=== PATIENT | male | born 1935 | race Caucasian/White ===

== ENCOUNTER → 2019-11-08 | Outpatient (CLI) | payer MEDICARE ==
--- NOTE | 2019-11-08 14:56 | RADIOLOGY REPORT (SQ) ---
EXAM DESCRIPTION: U/S RETROPERITON LTD COMPLETED DATE/TIME: 11/08/2019 12:27 pm REASON FOR STUDY: AAA (I71.4) I71.4 ABDOMINAL AORTIC ANEURYSM, WITHOUT RUPTURE COMPARISON: None. TECHNIQUE: Static and dynamic grayscale images acquired of the aorta and stored on PACs. Selected co roland Doppler and spectral images recorded. LIMITATIONS: None. FINDINGS: AORTIC CALIBER MAXIMAL PROXIMAL: 4.7 x 5.2 cm. MID: 5.8 x 5.9 cm. DISTAL: 6 x 6 cm. ILIAC DIAMETER RIGHT: Not seen. Cm. LEFT: Not seen. Cm. OTHER: No other significant finding. IMPRESSION: Large abdominal aortic aneurysm. COMMENT: Aortic aneurysm imaging followup: ?5.5 cm Referral to vascular surgeon recommended *Based upon the Society for Vascular Surgery Guidelines: J Vasc Surg. 2009 Oct;50(4 Suppl):S2-49 *For aortas of maximum diameter of 2.6-2.9 cm meeting the criteria for AAA (?1.5 x proximal normal se gment) TECHNICAL DOCUMENTATION: JOB ID: [id number] el?- All Rights Reserved Reading location - IP/workstation name: [email or web address]
== END ==
LOC: RAD 10:55
PROVIDERS: ATTEND Family Medicine
DX: I71.4 Abdominal aortic aneurysm, without rupture (principal)
CPT/HCPCS: 76775

== ENCOUNTER → 2019-11-17 | Outpatient (CLI) | payer MEDICARE ==
--- NOTE | 2019-11-17 17:14 | RADIOLOGY REPORT (SQ) ---
EXAM DESCRIPTION: CTA ABDOMEN/PELVIS W WO COMPLETED DATE/TIME: 11/17/2019 4:36 pm REASON FOR STUDY: I71.4 ABDOMINAL AORTIC ANEURYSM, WITHOUT RUPTURE I71.4 ABDOMINAL AORTIC ANEURYSM, WITHOUT RUPTURE COMPARISON: 02/16/2015 TECHNIQUE: CT scan of the abdominal aorta extending to the iliac bifurcation performed with intraven ous contrast using helical scanning technique with dynamic intravenous contrast injection. Images rev iewed with lung, soft tissue, and bone windows. Reconstructed coronal and sagittal MPR images reviewe d. All images stored on PACS. Advanced 3D imaging as volume rendering, MIPS, SSD performed? yes All CT scanners at this facility use dose modulation, iterative reconstruction, and/or weight based d osing when appropriate to reduce radiation dose to as low as reasonably achievable (ALARA). [facility]: Dose Right [facility]: CareDose [facility]: Dose Right [facility]: Teradose 4D [facility]: Optinel Systems CONTRAST TYPE AND DOSE: contrast/concentration: Isovue 350.00 mg/ml; Total Contrast Delivered: 100.0 ml; Total Saline Delivered: 90.0 ml RENAL FUNCTION: 0.9 creatinine LIMITATIONS: None. FINDINGS: AORTA AND VESSELS: Interval increase in size of the previously described abdominal aortic aneurysm measuring 6.6 x 6.4 cm in greatest dimension. The aneurysm extends from above the level of the left renal artery to the iliac bifurcation and spans approximately 13.3 cm in sagittal span. 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 The right externa l iliac is poorly opacified. There are scattered bilateral iliac calcifications with multifocal mode rate to severe luminal stenosis. The right common femoral artery appears occluded. High-grade steno sis at the proximal left SFA. 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 The celiac SMA, right renal artery and left renal artery are opacified with mult ifocal atherosclerosis. Likely moderate to high-grade stenosis of the left renal artery. 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 LUNG BASES: Unchanged soft tissue consolidation within the left lung base most compatible with benign etiology, likely round atelectasis. Small hiatal hernia. Basilar paraseptal emphysema. Coronary a therosclerosis. Enlarged heart LIVER: Normal size. No masses or dilated ducts. SPLEEN: Normal size. No focal lesions. PANCREAS: No masses. No significant calcifications. No adjacent inflammation or peripancreatic fluid collections. Pancreatic duct not dilated. GALLBLADDER: Decompressed. No radiopaque stones. ADRENAL GLANDS: No significant masses or asymmetry. RIGHT KIDNEY AND URETER: No mass, calculi or urinary tract obstruction. Scattered renal cysts. LEFT KIDNEY AND URETER: No mass, calculi or urinary tract obstruction. Scattered vascular calcificat ions. Large cyst measuring 7.1 cm. RETROPERITONEUM: No retroperitoneal adenopathy, hemorrhage or masses. BOWEL AND PERITONEAL CAVITY: Extensive colonic diverticula. No evidence of intestinal obstruction. No focal bowel wall thickening. APPENDIX: Normal. PELVIS AND ABDOMINAL WALL: No focal bladder wall thickening. Brachy therapy seeds within the prostat e. No pelvic adenopathy or free fluid. No masses. No hernias. BONY STRUCTURES: No acute bony abnormality. Decreased mineralization. Degenerative changes at the h ips and pubic symphysis. Thoracolumbar spondylosis and facet arthropathy. 3-D IMAGING: Confirms the above findings. OTHER: No other significant finding. IMPRESSION: 1. Interval increase in size of the complex juxta renal abdominal aortic aneurysm measu ring up to 6.6 cm. Additional detailed findings of the abdominal aortic and iliac aneurysms as detai led above. Recommend vascular surgical consultation if not previously performed. 2. No other evidence of acute intra-abdominal/pelvic process. 3. Unchanged multiple additional chronic findings as above. TECHNICAL DOCUMENTATION: JOB ID: [id number] Quality ID # [id number]: Final reports with documentation of one or more dose reduction techniques (e.g., Au tomated exposure control, adjustment of the mA and/or kV according to patient size, use of iterative reconstruction technique) 2010 [employer]- All Rights Reserved Reading location - IP/workstation name: [email or web address]
== END ==
LOC: RAD 15:30
PROVIDERS: ATTEND Surgery Vascular Surgery
DX: I71.4 Abdominal aortic aneurysm, without rupture (principal)
CPT/HCPCS: 74174; 82565

== ENCOUNTER 2020-04-10 11:36 | Emergency (ER) | payer MEDICARE ==
--- NOTE | 2020-04-10 14:21 | RADIOLOGY REPORT (SQ) ---
EXAM DESCRIPTION: CHEST SINGLE VIEW IMAGES COMPLETED DATE/TIME: 04/10/2020 2:03 pm REASON FOR STUDY: Shortness of breath COMPARISON: None. EXAM PARAMETERS: NUMBER OF VIEWS: One view. TECHNIQUE: Single frontal radiographic view of the chest acquired. RADIATION DOSE: NA LIMITATIONS: None. FINDINGS: LUNGS AND PLEURA: Small left pleural effusion. Ill-defined opacification in the left base . MEDIASTINUM AND HILAR STRUCTURES: No masses. Contour normal. HEART AND VASCULAR STRUCTURES: Heart normal in size. Normal vasculature. BONES: No acute findings. HARDWARE: Sternotomy wires. OTHER: No other significant finding. IMPRESSION: Small left pleural effusion. Limited airspace disease in the left base, atelectasis barbi cecilia pneumonia. TECHNICAL DOCUMENTATION: JOB ID: [id number] 2010 [employer]- All Rights Reserved Reading location - IP/workstation name: [email or web address]
[2020-04-10 14:23] LABS: ABSOLUTE EOSINOPHILS # (AUTO) 0.3 10^3/uL (0.0-0.6); ABSOLUTE LYMPHOCYTES (AUTO) 0.6 10^3/uL (0.5-4.7); ABSOLUTE MONOCYTES (AUTO) 0.5 10^3/uL (0.1-1.4); ABSOLUTE NEUT (AUTO) 3.9 10^3/uL (1.7-8.2); BASOPHILS % (AUTO) 0.6 % (0-2); EOSINOPHILS % (AUTO) 4.8 % (0-6); HEMATOCRIT 35.4 % (37.9-51.0); HEMOGLOBIN 11.9 g/dL (13.5-17.0); LYMPHOCYTES % (AUTO) 11.3 % (13-45); MEAN CORPUSCULAR HEMOGLOBIN 31.1 pg (27.0-33.4); MEAN CORPUSCULAR HGB CONC 33.6 g/dL (32.0-36.0); MEAN CORPUSCULAR VOLUME 93 fl (80-97); MONOCYTES % (AUTO) 9.4 % (3-13); PLATELET COUNT 150 10^3/uL (150-450); RED BLOOD COUNT 3.82 10^6/uL (4.35-5.55); RED CELL DISTRIBUTION WIDTH 14.6 % (11.5-14.0); SEGMENTED NEUTROPHILS % (AUTO) 73.9 % (42-78); TOTAL CELLS COUNTED % (AUTO) 100 %; WHITE BLOOD COUNT 5.2 10^3/uL (4.0-10.5)
[2020-04-10 14:29] LABS: ALBUMIN 3.5 g/dL (3.5-5.0); ALKALINE PHOSPHATASE 59 U/L (38-126); ANION GAP 6 (5-19); ASPARTATE AMINO TRANSFERASE 18 U/L (17-59); BILIRUBIN,TOTAL 0.5 mg/dL (0.2-1.3); BLOOD UREA NITROGEN 20 mg/dL (7-20); CALCIUM 9.2 mg/dL (8.4-10.2); CARBON DIOXIDE 27 mmol/L (22-30); CHLORIDE 104 mmol/L (98-107); CREATINE KINASE 31 U/L (55-170); GLUCOSE 128 mg/dL (75-110); POTASSIUM 4.4 mmol/L (3.6-5.0); TOTAL PROTEIN 6.3 g/dL (6.3-8.2)
[2020-04-10 14:37] LABS: CREATINE KINASE MB 0.84 ng/mL (<4.55); TROPONIN I 0.031 ng/mL
--- NOTE | 2020-04-10 15:26 | ER Document Report ---
ED Dizziness/Weakness - General Chief Complaint: Dizziness Stated Complaint: DIZZY Time Seen by Provider: 04/10/20 12:30 Primary Care Provider: DOREEN DIAMOND MD [Primary Care Provider] - Follow up as needed Mode of Arrival: Ambulatory Information source: Patient Notes: 84-year-old male presents to the emergency department with complaint of tried to stand this morning and felt dizzy and weak, these are not new symptoms but they were worse than normal. Patient states that he is always dizzy and weak, apparently has not been drinking a lot of fluids and is taking blood pressure medications. There is no history of exposure to coronavirus or cough, fever. He has not taken his usual medications today. He is on spironolactone, valsartan, amlodipine, Flomax, pravastatin, and Plavix. He denies chest pain, shortness of breath, or palpitations. He denies cough, fever, dysuria or myalgias. TRAVEL OUTSIDE OF THE [place] IN LAST 30 DAYS: No - Related Data Allergies/Adverse Reactions: No Known Allergies Allergy (Unverified 04/10/20 12:04) Home Medications: tamsulosin, pravastin, asparin, valsartan, amlodipine, clopidigrel, nirtomint, spironolactone Past Medical History - Social History Smoking Status: Former Smoker Frequency of alcohol use: None Drug Abuse: None Family History: Reviewed & Not Pertinent Patient has homicidal ideation: No Review of Systems - Review of Systems Notes: Constitutional: Negative for fever. HENT: Negative for sore throat. Eyes: Negative for visual changes. Cardiovascular: Negative for chest pain. Respiratory: Negative for shortness of breath. Gastrointestinal: Negative for abdominal pain, vomiting or diarrhea. Genitourinary: Negative for dysuria. Musculoskeletal: Negative for back pain. Skin: Negative for rash. Neurological: + Dizziness, + weakness. 10 point ROS negative except as marked above and in HPI. Physical Exam - Vital signs Vitals: Temp Pulse Resp BP Pulse Ox 97.5 F 64 18 134/65 H 98 04/10/20 11:47 04/10/20 11:47 04/10/20 11:47 04/10/20 11:47 04/10/20 11:47 - Notes Notes: PHYSICAL EXAMINATION: Physical Exam: General: Chronically ill-appearing 84-year-old man in no acute distress. HEENT: NC/AT, pupils equal round and reactive to light, MM moist,nares clear, oropharynx clear, airway patent Neck: supple, no adenopathy, no masses. Good range of motion Lungs: clear, no wheezing, no rales no rhonchi CVS: Regular rate and rhythm no murmur gallop or rub Abdomen: Soft, active, nontender, no masses, no hepatosplenomegaly Ext: 1+ edema, clubbing or cyanosis. Neuro: Alert and responsive, moving all 4 extremities on command, cranial nerves intact, no focal findings Skin: Intact no open lesions, no rash PSYCH: Normal mood, normal affect. Course - Re-evaluation Re-evalutation: 04/10/20 16:50 Patient was found to have a slightly elevated troponin and elevated BNP, he however is stating that he is ready to go home and is feeling better. A.m. repeat troponin is done there is no significant change in the value. Patient is being discharged home to follow-up with his primary care doctor as needed. - Vital Signs Vital signs: Temp Pulse Resp BP Pulse Ox 97.5 F 64 22 H 120/86 H 99 04/10/20 11:47 04/10/20 11:47 04/10/20 16:49 04/10/20 16:49 04/10/20 16:49 - Laboratory Result Diagrams: 04/10/20 11:50 04/10/20 11:50 Laboratory results interpreted by me: 04/10/20 04/10/20 04/10/20 11:50 11:50 11:50 RBC 3.82 L Hgb 11.9 L Hct 35.4 L RDW 14.6 H Lymph % (Auto) 11.3 L Glucose 128 H Creatine Kinase 31 L NT-Pro-B Natriuret Pep 777 H 04/10/20 15:23 I have reviewed laboratory data and used this information for the treatment decisions regarding the patient. - EKG Interpretation by Me EKG shows normal: Sinus rhythm - Sinus rhythm rate of 77, no acute ST or T wave abnormalities, normal axis. Discharge - Discharge Clinical Impression: Dizziness, Weakness Condition: Good Disposition: HOME, SELF-CARE Instructions: Dizziness ([facility]) Additional Instructions: You were seen in the emergency department today for dizziness, your evaluation is essentially negative for acute laboratory or cardiac findings. Please follow-up with your primary care doctor if your symptoms continue or if there is other concerns. If your symptoms are worsening or if you have other concerns you may return to the emergency department for further evaluation and treatment. HOME CARE INSTRUCTIONS & INFORMATION: Thank you for choosing us for your medical needs. We hope you're satisfied with the care you received. After you leave, you must properly care for your problem and, at the same time, observe its progress. Any condition can change. Some illnesses can change rapidly over hours or days. If your condition worsens, return to the Emergency Department or see your physician promptly. ABOUT YOUR X-RAYS AND EKG'S: If you had an EKG or X-rays taken, they have been read by the Emergency Physician. The X-rays and EKG's will also be read by a Radiologist or Bottling Machine Operator within 24 hours. If discrepancies are noted, you will be notified by telephone. Please be certain the ED has a correct telephone number & address where you can be reached. Also, realize that some fractures or abnormalities do not show up on initial X-rays. If your symptoms continue, see your physician. ABOUT YOUR LABORATORY TEST: If you had laboratory tests, the results have been reviewed by the Emergency Physician. Some test results (for example cultures) may not be available for several days. You will be contacted if any test result shows you need additional treatment. Please be certain the ED has a correct telephone number and address where you can be reached. ABOUT YOUR MEDICATIONS: You will receive instructions on how to take your medicine on the prescription label you receive. Additional information may be provided by the Pharmacy. If you have questions afterwards, call the ED for clarification or further instructions. Some prescribed medications may cause drowsiness. Do not perform tasks such as driving a car or operating machinery without consulting your Pharmacist. If you feel you need a refill of pain medication, your condition will need re-evaluation. Please do not call for a refill of any medication. ABOUT YOUR SIGNATURE: Signature of this document acknowledges to followin. Understanding that you received emergency treatment and that you may be released before al medical problems are known or treated. Please be certain the ED has a correct phone number & address where you can be reached. 2. Acknowledgement that you will arrange for follow-up care as recommended. 3. Authorization for the Emergency Physician to provide information to your follow-up Physician in order to maximize your care. AT ANY TIME, IF YOUR SYMPTOMS CHANGE SIGNIFICANTLY OR WORSEN OR YOU DEVELOP NEW SYMPTOMS, RETURN TO THE EMERGENCY DEPARTMENT IMMEDIATELY FOR RE-EVALUATION. OUR GOAL IS TO PROVIDE EXCELLENT MEDICAL CARE! WE HOPE THAT WE HAVE MET YOUR EXPECTATIONS DURING YOUR EMERGENCY DEPARTMENT VISIT AND THAT YOU FEEL YOU HAVE RECEIVED EXCELLENT CARE! Referrals: DOREEN DIAMOND MD [Primary Care Provider] - Follow up as needed
[2020-04-10 17:00] VITALS: BP 120/86
--- NOTE | 2020-04-11 00:26 | EKG REPORT ---
SEVERITY:- ABNORMAL ECG - SINUS TACHYCARDIA : Confirmed by: Silviano Soto 11-Apr-2020 00:25:47
== END 2020-04-10 17:09 | disposition home or self-care (01) ==
LOC: ER 11:36
DX: R42 Dizziness and giddiness (principal); R53.1 Weakness; Z79.899 Other long term (current) drug therapy; Z87.891 Personal history of nicotine dependence
CPT/HCPCS: 36415; 71045; 80053; 82550; 82553; 83735; 83880; 84484; 85025; 93005; 93010; 99284